=== PATIENT | female | born 1965 ===

== ENCOUNTER 2018-09-05 04:39 | Observation (INO) | payer BC, MEDICAID ==
[2018-09-05 04:39] VITALS: BMI 27.4
[2018-09-05] MEDS ORDERED: Morphine 4 MG/ML VIAL IVP STA (05:37)
[2018-09-05] MEDS ORDERED: Morphine 4 MG/ML VIAL ONE (05:39)
[2018-09-05] MEDS ORDERED: Sodium Chloride 0.9% 1,000 ML IV SCH (05:45)
[2018-09-05 05:56] LABS: BASO % 0.6 % (0.0-2.0); EOS # 0.2 K/uL (0.0-0.7); EOS % 2.7 % (0.0-4.0); HEMOGLOBIN 9.7 g/dL (12.0-16.0); LYMPH # 1.3 K/uL (1.0-4.3); LYMPH % 17.5 % (20.0-40.0); MEAN CELL VOLUME 88.2 fl (81.0-99.0); MEAN CORPUSCULAR HEMOGLOBIN 28.8 pg (27.0-31.0); MEAN CORPUSCULAR HGB CONC 32.7 g/dL (33.0-37.0); MEAN PLATELET VOLUME 8.9 fl (7.2-11.7); MONO # 0.5 K/uL (0.0-0.8); MONO % 6.6 % (0.0-10.0); NEUT # 5.4 K/uL (1.8-7.0); NEUT % 72.6 % (50.0-75.0); NRBC % 0.1 % (0.0-0.0); RBC 3.36 Mil/uL (3.80-5.20); RED CELL DISTRIBUTION WIDTH 14.2 % (11.5-14.5); WHITE BLOOD COUNT 7.4 K/uL (4.8-10.8)
[2018-09-05 06:07] LABS: ALB/GLOB RATIO 1.2 (1.0-2.1); ALT/SGPT 25 U/L (9-52); AST/SGOT 28 U/L (14-36); BLOOD UREA NITROGEN 15 mg/dl (7-17); GFR NON-AFRICAN AMERICAN > 60; LIPASE 239 U/L (23-300)
[2018-09-05 06:17] LABS: SQUAMOUS EPITHIAL 1 /hpf (0-5); URINE BACTERIA RARE (<OCC)
[2018-09-05 06:18] LABS: URINE BILIRUBIN NEGATIVE (NEGATIVE); URINE BLOOD SMALL (NEGATIVE); URINE CLARITY CLEAR (Clear); URINE COLOR STRAW (YELLOW); URINE GLUCOSE (UA) NEG (NEGATIVE); URINE LEUKOCYTE ESTERASE MOD Leu/uL (Negative); URINE PROTEIN NEGATIVE (NEGATIVE); URINE UROBILINOGEN 0.2-1.0 mg/dL (0.2-1.0)
--- NOTE | 2018-09-05 06:26 | ED PDOC ---
HPI: Abdomen Time Seen by Provider: 09/05/18 05:24 Chief Complaint (Nursing): Abdominal Pain History Per: Patient, Family Onset/Duration Of Symptoms: Days Location Of Pain/Discomfort: Diffuse Associated Symptoms: Nausea, Vomiting Additional Complaint(s): 53 yo F s/p transvaginal hysterectomy for prolapse by Dr. elgin Gordon at [facility] in [place], 8 days ago presents for progressively worsening abdominal pain, worse this morning. Associated with subjective fevers, chest pain, nausea and vomiting. Pt reports she was in the hospital for 3 days, she had a fever, started on Flagyl. She has also been given inhaler and incentive spirometer for chest pain, gas x for bloating, motrin and percocet for pain. percocet last taken at 0230 without relief. Pt reports she had 3 bowel movements yesterday. She feels very bloated. She has mild vaginal bleeding, pain when urinating. Pt denies leg/calf pain or swelling. Past Medical History Reviewed: Historical Data, Nursing Documentation, Vital Signs Vital Signs: Last Vital Signs Temp 98.8 F 09/05/18 04:44 Pulse 95 H 09/05/18 04:44 Resp 18 09/05/18 04:44 BP 160/99 H 09/05/18 04:44 Pulse Ox 100 09/05/18 04:44 Primary Care Provider: Elgin Flower - Medical History PMH: Gastritis, Hypothyroidism Denies: Chronic Kidney Disease - Surgical History Surgical History: Endoscopy Other surgeries: transvaginal hysterectomy - Family History Family History: States: Unknown Family Hx - Home Medications Home Medications: Ambulatory Orders Medication Instructions Recorded Benzonatate [Tessalon Perle] 100 mg PO TID PRN #10 capsule 04/25/16 Levothyroxine [Synthroid] 150 mcg PO DAILY 04/25/16 Omeprazole 40 mg PO DAILY 04/25/16 - Allergies Allergies/Adverse Reactions: Allergies Allergy/AdvReac Type Severity Reaction Status Date / Time No Known Allergies Allergy Verified 04/25/16 14:37 Review of Systems Constitutional: Positive for: Fever Cardiovascular: Positive for: Chest Pain Gastrointestinal: Positive for: Nausea, Vomiting, Abdominal Pain. Negative for: Diarrhea, Constipation Physical Exam - Reviewed Nursing Documentation Reviewed: Yes Vital Signs Reviewed: Yes - Physical Exam Comments: GENERAL APPEARANCE: Patient is awake, alert, oriented x 3, in severe obvious pain SKIN: Warm, dry; (-) cyanosis. EYES: (-) conjunctival pallor, (-) scleral icterus. ENMT: Mucous membranes moist. NECK: (-) tenderness, (-) stiffness, (-) lymphadenopathy. CHEST AND RESPIRATORY: (+)left chest tenderness; (-) rales, (-) rhonchi, (-) wheezes; breath sounds equal bilaterally. HEART AND CARDIOVASCULAR: (-) irregularity; (-) murmur, (-) gallop. ABDOMEN AND GI: (+) diffuse distention. (+)diffuse abdominal tenderness (-) guarding, (-) rebound, (-) palpable masses EXTREMITIES: (-) deformity, (-) edema, (-)calf tenderness, (+) distal pulses. NEURO AND PSYCH: Mental status as above; (-) focal findings. - Laboratory Results Result Diagrams: 09/05/18 05:40 09/05/18 05:40 Lab Results: Total Bilirubin 0.3 mg/dl (0.2-1.3) 09/05/18 05:40 AST 28 U/L (14-36) 09/05/18 05:40 ALT 25 U/L (9-52) 09/05/18 05:40 Alkaline Phosphatase 79 U/L (38-126) 09/05/18 05:40 Total Protein 7.4 G/DL (6.3-8.2) 09/05/18 05:40 Albumin 4.0 g/dL (3.5-5.0) 09/05/18 05:40 Globulin 3.3 gm/dL (2.2-3.9) 09/05/18 05:40 Albumin/Globulin Ratio 1.2 (1.0-2.1) 09/05/18 05:40 Lipase 239 U/L (23-300) 09/05/18 05:40 - ECG O2 Sat by Pulse Oximetry: 100 Medical Decision Making Medical Decision Makin -- labs -- CT chest, abd, pelvis -- Morphine IV, Zofran IV -- UA -- blood culture -- urine culture -- re eval [address] Ferrer, pending CT results, labs, re eval and dispo Disposition - Clinical Impression Clinical Impression: Abdominal pain - Patient ED Disposition Is Patient to be Admitted: Transfer of Care (case endorsed to Dr. Ferrer, pending CT results, labs, re eval and dispo) Counseled Patient/Family Regarding: Studies Performed, Diagnosis - Disposition Disposition: Transfer of Care (case endorsed to Dr. Ferrer, pending CT results, labs, re eval and dispo) Disposition Time: 07:00 Condition: FAIR - POA Present On Arrival: None
[2018-09-05] MEDS ORDERED: Iohexol 300 100 ML IJ ONE (06:47)
[2018-09-05] MEDS ORDERED: Sodium Chloride 0.9% 50 ML IV ONE (06:47)
--- NOTE | 2018-09-05 07:53 | ED PDOC ---
- Laboratory Results Result Diagrams: 09/05/18 05:40 09/05/18 05:40 Lab Results: Total Bilirubin 0.3 mg/dl (0.2-1.3) 09/05/18 05:40 AST 28 U/L (14-36) 09/05/18 05:40 ALT 25 U/L (9-52) 09/05/18 05:40 Alkaline Phosphatase 79 U/L (38-126) 09/05/18 05:40 Total Protein 7.4 G/DL (6.3-8.2) 09/05/18 05:40 Albumin 4.0 g/dL (3.5-5.0) 09/05/18 05:40 Globulin 3.3 gm/dL (2.2-3.9) 09/05/18 05:40 Albumin/Globulin Ratio 1.2 (1.0-2.1) 09/05/18 05:40 Lipase 239 U/L (23-300) 09/05/18 05:40 Urine Color Straw (YELLOW) 09/05/18 05:55 Urine Clarity Clear (Clear) 09/05/18 05:55 Urine pH 7.0 (5.0-8.0) 09/05/18 05:55 Ur Specific [place] 1.009 (1.003-1.030) 09/05/18 05:55 Urine Protein Negative mg/dL (NEGATIVE) 09/05/18 05:55 Urine Glucose (UA) Neg mg/dL (NEGATIVE) 09/05/18 05:55 Urine Ketones Negative mg/dL (NEGATIVE) 09/05/18 05:55 Urine Blood Small (NEGATIVE) 09/05/18 05:55 Urine Nitrate Negative (NEGATIVE) 09/05/18 05:55 Urine Bilirubin Negative (NEGATIVE) 09/05/18 05:55 Urine Urobilinogen 0.2-1.0 mg/dL (0.2-1.0) 09/05/18 05:55 Ur Leukocyte Esterase Mod [place]/uL (Negative) 09/05/18 05:55 Urine RBC (Auto) 9 /hpf (0-3) H 09/05/18 05:55 Urine Microscopic WBC 9 /hpf (0-5) H 09/05/18 05:55 Ur Squamous Epith Cells 1 /hpf (0-5) 09/05/18 05:55 Urine Bacteria Rare (<OCC) 05/05/19 05:55 - ECG O2 Sat by Pulse Oximetry: 97 (RA) Pulse Ox Interpretation: Normal Medical Decision Making Medical Decision Making: Time: 0700 -- Patient endorsed to me by Dr. Villalba, pending CT results, labs, re- evaluation and disposition. Time: 0753 CTA OF THE CHEST WITH IV CONTRAST CLINICAL HISTORY: ? pe, pt describes having a recent surgery 08/27/18, hysterectomy, vaginal and buttox surgery. pt c/o abd, left leg and left chest pain. (Hx) / ? PE POST OP ABD/CHEST PAIN TECHNIQUE: Axial and reformatted sagittal and coronal images of the chest obtained after bolus IV contrast administration. FINDINGS: Normal enhancement of the main pulmonary artery and right and left pulmonary arteries. Normal enhancement of the bilateral peripheral pulmonary arteries. There is no demonstrated pulmonary embolism. Normal thoracic aorta and visualized great vessels. There is no demonstrated aortic dissection. Normal heart and pericardium. Normal mediastinum. Normal hilar regions. Minimal bilateral basilar subsegmental atelectatic pulmonary changes. Normal visualized trachea and bronchi. The remaining lungs are well expanded. Normal pulmonary parenchyma. Normal pleura. Normal chest wall structures. Normal osseous structures. Mild diffuse thickening of the gallbladder. IMPRESSION: No demonstrated pulmonary embolism or arterial dissection. Distended gallbladder. Diffuse thickening of the gallbladder. Electronically signed on September 05, 2018 7:53:19 AM EDT by: Ivory Briggs M.D., Certified by ABR, MSK, Neuroradiology CT SCAN OF THE ABDOMEN AND PELVIS WITH CONTRAST. CLINICAL HISTORY: Abdominal pain. TECHNIQUE: Multiple axial and coronal CT images were obtained through the abdomen and pelvis after administration of intravenous contrast material. COMPARISON: 08/27/2014 04:51 PM EDT: CT\SD\SR: ABD PELVIS W/O PO OR IV CONT. COMMENTS: Cholelithiasis. Mild diffuse thickening of the gallbladder, not present on prior exam. Sonograph ic evaluation is suggested. Hysterectomy in the interim. Uncomplicated colonic diverticulosis, unchanged. Bilateral fat containing inguinal hernias without incarceration. Distended bladder. Mild thickening of the bladder suspicious for mild cystitis. Mild bilateral fullness of the collecting systems. Please correlate with urinalysis to exclude an ascending urinary tract infection. The liver is of uniform attenuation without mass or defect. There is no intra or extrahepatic biliary ductal dilatation. The spleen is normal. The pancreas is of normal contour and attenuation characteristics. There is no evidence of adrenal mass. Both kidneys demonstrate prompt and equal nephrograms. The kidneys are normal in size, shape and configuration. There is no evidence of renal or ureteral mass. No renal or ureteral calculi are identified. No evidence for appendicitis. There is no bowel wall thickening. No evidence for small or large bowel obstruction. There is no evidence of abdominal ascites or l ymphadenopathy. There is no evidence of intrinsic or extrinsic bladder mass. There is no pelvic ascites or lymphadenopathy. Images of the lung bases show no evidence of pleural or parenchymal mass. There are no pleural effusions. The bony structures are free of lytic or blastic lesions. IMPRESSION: Cholelithiasis. Mild diffuse thickening of the gallbladder, not present on prior exam. Sonographic evaluation is suggested. Hysterectomy in the interim. Uncomplicated colonic diverticulosis, unchanged. Bilateral fat containing inguinal hernias without incarceration. Distended bladder. Mild thickening of the bladder suspicious for mild cystitis. Mild bilateral fullness of the collecting systems. Please correlate with urinalysis to exclude an ascending urinary tract infection. Thank you for your kind referral of this patient. Electronically signed on September 05, 2018 8:01:05 AM EDT by: Ivory Briggs M.D., Certified by ABR, MSK, Neuroradiology -- US ordered for thicken Gall bladder Scribe Attestation: Documented by Patricia Horton, acting as a scribe Regan Ferrer MD. Provider Scribe Attestation: All medical record entries made by the Scribe were at my direction and personally dictated by me. I have reviewed the chart and agree that the record accurately reflects my personal performance of the history, physical exam, medical decision making, and the department course for this patient. I have also personally directed, reviewed, and agree with the discharge instructions and dis position. Disposition - Clinical Impression Clinical Impression: Abdominal pain, Cholelithiases - POA Present On Arrival: None - Disposition Disposition: Hospitalized as Observation Patient Disposition Time: 10:07 Condition: FAIR Forms: scrible (Singaporean)
[2018-09-05] MEDS ORDERED: Piperacillin/Tazobact 3.375 GM in Sodium Chloride 0.9% 100 ML IVPB STA (08:00)
--- NOTE | 2018-09-05 08:13 | CP.PCM.CON ---
History of Present Illness - History of Present Illness History of Present Illness: General Surgery Consult for Dr. Arce Reason for consult: abdominal pain, nausea/vomiting 53F with PMH of hypothyroid, s/p transvaginal hysterectomy for prolapse 8 days ago presents for progressively worsening abdominal pain. Patient was seen and evaluated in the ED. Patient states that pain has intermittent present since surgery but yesterday developed severe pain. Patient admits to associated nausea/vomiting, diarrhea and dark BMs. Patient is diffusely located throughout abdomen but worse in RUQ. Patient's surgery was performed by Dr. Elgin Gordon at [facility] 8 days ago. Patient reports she was in the hospital for 3 days. She has using inhaler and incentive spirometer. She was prescribed simethicone for bloating, motrin and percocet for pain. Patient reports flatus and 3 bowel movements yesterday. Also admits vaginal bleeding and pain with urination. Denies feevr/chills, SOB, CP, palpitations, hematemesis, hematochezia, constipation. CT abd/pelvis was done in ED which revealed distended GB with wall thickening, bilateral inguinal hernias, dilation of renal ciollecting ducts, diverticulosis, and post op changes (see full report by [facility]). ABUS ordered to evaluate GB. PMH: Gastritis, Hypothyroidism, Hiatal Hernia, GERD PSH: Endoscopy, transvaginal hysterectomy, R breast lumpectomy, L breast cyst removal, skin lesion removal ALL: NKDA Review of Systems - Review of Systems All systems: reviewed and no additional remarkable complaints except (as per hpi) Past Patient History - Past Medical History & Family History Past Medical History?: Yes - Past Social History Smoking Status: Never Smoked - CARDIAC Hx Cardiac Disorders: No - PULMONARY Hx Respiratory Disorders: No - NEUROLOGICAL Hx Neurological Disorder: No - HEENT Hx HEENT Problems: No - RENAL Hx Chronic Kidney Disease: No - ENDOCRINE/METABOLIC Hx Hypothyroidism: Yes - HEMATOLOGICAL/ONCOLOGICAL Hx Blood Disorders: No - INTEGUMENTARY Hx Dermatological Problems: No - MUSCULOSKELETAL/RHEUMATOLOGICAL Hx Musculoskeletal Disorders: No - GASTROINTESTINAL Hx Gastritis: Yes - GENITOURINARY/GYNECOLOGICAL Hx Genitourinary Disorders: No - PSYCHIATRIC Hx Psychophysiologic Disorder: No Hx Substance Use: No - SURGICAL HISTORY Hx Surgeries: Yes Other/Comment: prolapse/hysterectomy (8 days ago 09/05/18) - ANESTHESIA Hx Anesthesia: Yes Meds Allergies/Adverse Reactions: Allergies Allergy/AdvReac Type Severity Reaction Status Date / Time No Known Allergies Allergy Verified 04/25/16 14:37 - Medications Medications: Current Medications Piperacillin Sod/Tazobactam (Sod 3.375 gm/ Sodium Chloride) 100 mls @ 100 mls/hr IVPB STAT STA; Protocol Stop: 09/05/18 08:59 Physical Exam - Constitutional Appears: Non-toxic, No Acute Distress - Head Exam Head Exam: ATRAUMATIC, NORMOCEPHALIC - Eye Exam Eye Exam: EOMI, Normal appearance Pupil Exam: PERRL - ENT Exam ENT Exam: Mucous Membranes Moist - Respiratory Exam Respiratory Exam: NORMAL BREATHING PATTERN - Cardiovascular Exam Cardiovascular Exam: REGULAR RHYTHM - GI/Abdominal Exam GI & Abdominal Exam: Distended (mild), Normal Bowel Sounds, Soft, Tenderness (diffuse). absent: Firm, Guarding, Rebound, Rigid Additional comments: +forbes's sign - Extremities Exam Extremities exam: Positive for: normal capillary refill, pedal pulses present - Back Exam Back exam: absent: CVA tenderness (L), CVA tenderness (R) - Neurological Exam Neurological exam: Alert, CN II-XII Intact, Oriented x3 - Psychiatric Exam Psychiatric exam: Normal Affect, Normal Mood - Skin Skin Exam: Dry, Intact, Normal Color, Warm Results - Vital Signs Recent Vital Signs: Last Vital Signs Temp 97.9 F 09/05/18 07:33 Pulse 76 09/05/18 07:33 Resp 16 09/05/18 07:33 BP 128/86 09/05/18 07:33 Pulse Ox 97 09/05/18 07:56 - Labs Result Diagrams: 09/05/18 05:40 09/05/18 05:40 Labs: Laboratory Results - last 24 hr 09/05/18 09/05/18 09/05/18 05:40 05:40 05:40 WBC 7.4 RBC 3.36 L Hgb 9.7 L Hct 29.6 L MCV 88.2 D MCH 28.8 MCHC 32.7 L RDW 14.2 Plt Count 313 D MPV 8.9 Neut % (Auto) 72.6 Lymph % (Auto) 17.5 L [place] % (Auto) 6.6 Eos % (Auto) 2.7 Baso % (Auto) 0.6 Neut # (Auto) 5.4 Lymph # (Auto) 1.3 [place] # (Auto) 0.5 Eos # (Auto) 0.2 Baso # (Auto) 0.0 Sodium 139 Potassium 3.6 Chloride 100 Carbon Dioxide 28 Anion Gap 15 BUN 15 Creatinine 0.5 L Est GFR ( Amer) > 60 Est GFR (Non-Af Amer) > 60 Random Glucose 123 H Lactic Acid 1.1 Calcium 9.0 Total Bilirubin 0.3 AST 28 ALT 25 Alkaline Phosphatase 79 Total Protein 7.4 Albumin 4.0 Globulin 3.3 Albumin/Globulin Ratio 1.2 Lipase 239 Urine Color Urine Clarity Urine pH Ur Specific [place] Urine Protein Urine Glucose (UA) Urine Ketones Urine Blood Urine Nitrate Urine Bilirubin Urine Urobilinogen Ur Leukocyte Esterase Urine RBC (Auto) Urine Microscopic WBC Ur Squamous Epith Cells Urine Bacteria 09/05/18 05:55 WBC RBC Hgb Hct MCV MCH MCHC RDW Plt Count MPV Neut % (Auto) Lymph % (Auto) [place] % (Auto) Eos % (Auto) Baso % (Auto) Neut # (Auto) Lymph # (Auto) [place] # (Auto) Eos # (Auto) Baso # (Auto) Sodium Potassium Chloride Carbon Dioxide Anion Gap BUN Creatinine Est GFR ( Amer) Est GFR (Non-Af Amer) Random Glucose Lactic Acid Calcium Total Bilirubin AST ALT Alkaline Phosphatase Total Protein Albumin Globulin Albumin/Globulin Ratio Lipase Urine Color Straw Urine Clarity Clear Urine pH 7.0 Ur Specific [place] 1.009 Urine Protein Negative Urine Glucose (UA) Neg Urine Ketones Negative Urine Blood Small Urine Nitrate Negative Urine Bilirubin Negative Urine Urobilinogen 0.2-1.0 Ur Leukocyte Esterase Mod Urine RBC (Auto) 9 H Urine Microscopic WBC 9 H Ur Squamous Epith Cells 1 Urine Bacteria Rare Assessment & Plan - Assessment and Plan (Free Text) Assessment: 53 F s/p transvaginal hysterectomy who presents with abd pain and nausea/vomiting/diarrhea Plan: -NPO except meds -f/u ABUS, evaluating GB and kidneys -Pain control -Anti-emetics PRN -Stool occult blood -GI/DVT ppx -Resume home meds -Further recommendations as per Dr. Claude Miner PGY2 - Date & Time Date: 09/05/18 Time: 08:47
[2018-09-05] MEDS ORDERED: Piperacillin/Tazobact 3.375 gm Inj IVPB ONE (10:39)
[2018-09-05] MEDS: Lactated Ringer's 1,000 ML IV SCH ×3 (11:46→20:44)
--- NOTE | 2018-09-05 11:49 | US ---
Date of service: 09/05/2018 HISTORY: Right upper quadrant pain. Thickened gallbladder wall. COMPARISON: None. TECHNIQUE: Sonographic evaluation of the right upper quadrant of the abdomen. FINDINGS: LIVER: Measures 14.2 cm in length. Normal echogenicity of the liver parenchyma. No mass. No intrahepatic bile duct dilatation. GALLBLADDER: Intraluminal gallbladder calculi present. No evidence of gallbladder wall thickening. No obvious pericholecystic fluid collections. No reported sonographic Nelson sign COMMON BILE DUCT: Measures 3.0 mm. No stones. No dilatation. PANCREAS: Unremarkable as visualized. No mass. No ductal dilatation. RIGHT KIDNEY: Measures 12.1 x 4.3 x 3.8 cm in length. Normal echogenicity. No calculus, mass, or hydronephrosis. AORTA: No aneurysmal dilatation. IVC: Unremarkable. OTHER FINDINGS: None . IMPRESSION: Cholelithiasis. No sonographic Nleson sign reported. No significant gallbladder wall thickening or pericholecystic fluid collections seen.
[2018-09-05] MEDS: Levothyroxine 150 MCG TAB PO SCH (12:06)
[2018-09-05] MEDS: HYDROmorphone 0.5 mg/0.5 ml ISec IVP PRN ×2 (13:58→23:11)
--- NOTE | 2018-09-05 15:21 | CT ---
Date of service: 09/05/2018 PROCEDURE: CT Chest with contrast (Pulmonary Angiogram) HISTORY: R/O PE COMPARISON: Made S1 TECHNIQUE: Axial computed tomography images were obtained of the chest in the pulmonary arterial phase of enhancement. Coronal and sagittal reformatted images were created and reviewed. Intravenous contrast dose: Radiation dose: Total exam DLP = 819.82 mGy-cm. This CT exam was performed using one or more of the following dose reduction techniques: Automated exposure control, adjustment of the mA and/or kV according to patient size, and/or use of iterative reconstruction technique. FINDINGS: PULMONARY ARTERIES: No evidence of acute central pulmonary embolus. AORTA: No acute findings. No thoracic aortic aneurysm. No aortic atherosclerotic calcification or mural plaque present. LUNGS: Minor passive/dependent type atelectasis posterior lung dunne.. There also appears to be some very minimal linear atelectasis and/or scarring along the anterior-superior aspect right upper lobe PLEURAL SPACES: Unremarkable. No effusion or pneumothorax. HEART: Unremarkable. No cardiomegaly. No significant pericardial effusion. LYMPH NODES: No lymphadenopathy. BONES, CHEST WALL: Unremarkable. No fracture or destructive lesion OTHER FINDINGS: Distended gallbladder with intraluminal gallbladder calculi. Cholelithiasis IMPRESSION: No evidence of acute central pulmonary embolus. Cholelithiasis.
--- NOTE | 2018-09-05 16:01 | CT ---
Date of service: 09/05/2018 PROCEDURE: CT Abdomen and Pelvis with contrast HISTORY: Postoperative distension COMPARISON: Hysterectomy comparison made with prior CT scan abdomen pelvis dated 08/27/2014 TECHNIQUE: Contiguous helical transaxial sections of the abdomen pelvis performed following intravenous injection of approximately 95 cc Omnipaque 300 contrast material. Additional 2D sagittal and coronal reformats generated Radiation dose: Total exam DLP = 819.81 mGy-cm. This CT exam was performed using one or more of the following dose reduction techniques: Automated exposure control, adjustment of the mA and/or kV according to patient size, and/or use of iterative reconstruction technique. FINDINGS: LOWER THORAX: Minor LIVER: fatty hepatic infiltration. GALLBLADDER AND BILE DUCTS: Cholelithiasis. No significant gallbladder wall thickening PANCREAS: Unremarkable. No gross lesion or ductal dilatation. SPLEEN: Unremarkable. ADRENALS: Unremarkable. No mass. KIDNEYS AND URETERS: Unremarkable. No hydronephrosis. No solid mass. VASCULATURE: Unremarkable. No aortic aneurysm. No aortic atherosclerotic calcification or mural plaque present. BOWEL: Small bowel exhibits normal caliber without evidence of obstruction Moderately large amount of stool seen throughout the colon consistent with fecal retention/constipation. Few scattered colonic diverticula APPENDIX: Appendix not identified with certainty however no inflammatory changes right lower quadrant of the abdomen seen to suggest acute appendicitis. PERITONEUM: Unremarkable. No free fluid. No free air. Multiple small nonspecific retroperitoneal and mesenteric lymph nodes. Small fat containing bilateral inguinal hernias.. There is a small fat containing umbilical hernia. LYMPH NODES: There are multiple small nonspecific retroperitoneal and mesenteric lymph nodes BLADDER: Urinary bladder wall is slightly thickened in part due to incomplete distention however correlation with urinalysis recommended to exclude cystitis REPRODUCTIVE: Hysterectomy. Urinary bladder wall BONES: Mild multilevel degenerative spondylosis of the lower thoracic and lumbar spine. OTHER FINDINGS: None. IMPRESSION: Cholelithiasis. Findings consistent with constipation. Probable small hyperdense cyst medial aspect midpole region Rule out cystitis.
[2018-09-05] MEDS ORDERED: Pneumococcal 23-Valent Vaccine IM ONE (17:01)
[2018-09-06] MEDS: Lactated Ringer's 1,000 ML IV SCH ×3 (01:08→10:17)
[2018-09-06] MEDS: Levothyroxine 150 MCG TAB PO SCH (05:46)
[2018-09-06 07:03] LABS: HEMOGLOBIN 10.1 g/dL (12.0-16.0); MEAN CELL VOLUME 87.7 fl (81.0-99.0); MEAN CORPUSCULAR HEMOGLOBIN 29.6 pg (27.0-31.0); MEAN CORPUSCULAR HGB CONC 33.8 g/dL (33.0-37.0); RBC 3.41 Mil/uL (3.80-5.20); RED CELL DISTRIBUTION WIDTH 14.1 % (11.5-14.5); WHITE BLOOD COUNT 5.8 K/uL (4.8-10.8)
[2018-09-06 07:34] LABS: BLOOD UREA NITROGEN 8 mg/dl (7-17); CALCIUM 9.3 mg/dL (8.4-10.2); GFR NON-AFRICAN AMERICAN > 60
--- NOTE | 2018-09-06 07:39 | CP.PCM.PN ---
Subjective - Date & Time of Evaluation Date of Evaluation: 09/06/18 Time of Evaluation: 07:43 - Subjective Subjective: 53 F s/p transvaginal hysterectomy who presents with abd pain and nausea/vomiting/diarrhea. Patient admits to mild pain today. Patient states she passes gas. Objective - Vital Signs/Intake and Output Vital Signs (last 24 hours): Temp Pulse Resp BP Pulse Ox 98 F 73 18 123/77 96 09/06/18 00:00 09/06/18 00:00 09/06/18 00:00 09/06/18 00:00 09/06/18 00:00 - Medications Medications: Current Medications Acetaminophen (Tylenol 325mg Tab) 650 mg PO Q6 PRN PRN Reason: Pain, Mild (1-3) Last Admin: 09/06/18 04:39 Dose: 650 mg Hydromorphone HCl (Dilaudid) 0.5 mg IVP Q4 PRN PRN Reason: Pain, severe (8-10) Last Admin: 09/05/18 23:11 Dose: 0.5 mg Lactated Ringer's (Lactated Ringer's) 1,000 mls @ 125 mls/hr IV .Q8H [facility] Last Admin: 09/06/18 04:38 Dose: 125 mls/hr Levothyroxine Sodium (Synthroid) 150 mcg PO DAILY@0630 [facility] Last Admin: 09/06/18 05:46 Dose: 150 mcg Ondansetron HCl (Zofran Inj) 4 mg IVP Q6 PRN PRN Reason: Nausea/Vomiting Last Admin: 09/06/18 01:26 Dose: 4 mg Pantoprazole Sodium (Protonix Inj) 40 mg IVP DAILY [facility] - Labs Labs: 09/06/18 06:00 09/06/18 06:00 - Constitutional Appears: Well, Non-toxic - Head Exam Head Exam: ATRAUMATIC, NORMOCEPHALIC - ENT Exam ENT Exam: Mucous Membranes Moist - Cardiovascular Exam Cardiovascular Exam: REGULAR RHYTHM, +S1, +S2 - GI/Abdominal Exam GI & Abdominal Exam: Soft, Tenderness (diffuse), Normal Bowel Sounds. absent: Firm, Guarding, Rigid - Extremities Exam Extremities Exam: Normal Capillary Refill - Neurological Exam Neurological Exam: Alert, Awake Assessment and Plan - Assessment and Plan (Free Text) Assessment: 53 F s/p transvaginal hysterectomy who presents with abd pain and nausea/vomiting/diarrhea Plan: Abd US- cholelithiasis Pain control Anti-emetics PRN GI/DVT ppx No acute surgical intervention at this time. Recommend outpatient [employer] follow up thank you for the consult
[2018-09-06 08:05] LABS: ALB/GLOB RATIO 1.2 (1.0-2.1); BILIRUBIN,DIRECT 0.3 mg/ml (0.0-0.4)
[2018-09-06] MEDS: HYDROmorphone 0.5 mg/0.5 ml ISec IVP PRN (08:30)
--- NOTE | 2018-09-06 08:44 | HP ---
HISTORY OF PRESENT ILLNESS: The patient was admitted for cholecystitis, has been seen and evaluated by surgical team without any surgical plans at this time. The patient had diffuse mild abdominal discomfort and headache at time of eval. No fever, chills, nausea, vomiting, or diarrhea. Labs and imaging have been reviewed. REVIEW OF SYSTEMS: Abdominal discomfort, headache. PHYSICAL EXAMINATION: GENERAL: Normal. She has a very mild diffuse abdominal tenderness. CONSTITUTIONAL: Awake, alert, and oriented. HEENT: Normal. CARDIAC: S1 and S2, regular rate and rhythm. No murmurs, rubs, or gallops. LUNGS: Clear in all dunne bilaterally. ABDOMEN: Soft. Diffusely tender. No localized tenderness. Bowel sounds x4. EXTREMITIES: Distal PMS is intact. Cap refill is brisk. DIAGNOSIS AND PLAN: Cholecystitis. The patient is overall doing well. I spoke with medical or surgical instrument maker who states they are signing off the case. We will advance diet to bland. If the patient tolerates, we will discharge home. Continue to monitor for fevers and pain. The patient's care was discussed with her primary at [place]. Deep venous thrombosis prophylaxis, sequential compression devices, A-hose, ambulation. Headache, Tylenol. Hydration. We will continue to follow. SHANNEN Talley
[2018-09-06] MEDS ORDERED: Potassium Chloride 20 mEq ER Tab PO ONE (10:15)
[2018-09-06 16:06] VITALS: BP 118/74; PULSE 56; RESP 18; TEMP 98.5; O2SAT 97
== END 2018-09-06 16:15 | disposition home or self-care (01) ==
LOC: H.ER 04:39 → H.ERHOLD 10:05 → H.MEDSURG1 12:40
PROVIDERS: ADMIT Family Medicine; ATTEND Family Medicine
DX: K81.9 Cholecystitis, unspecified (principal); E03.9 Hypothyroidism, unspecified; K21.9 Gastro-esophageal reflux disease without esophagitis; K29.70 Gastritis, unspecified, without bleeding; Z23 Encounter for immunization; Z79.890 Hormone replacement therapy
CPT/HCPCS: 36415; 71275; 74177; 76705; 80048; 80053; 80076; 81003; 81025; 83605; 83690; 85025; 85027; 87040; 87086; 90732; 96360; 96374; 99285; C9113; G0009; G0328; G0378; J1170; J2270; J2405; J2543; J7030; J7120; Q9967